=== PATIENT | female | born 1995 ===

== ENCOUNTER 2016-09-14 19:43 | Emergency (ER) | payer SELFPAY ==
[2016-09-14] MEDS ORDERED: PREDNISONE 20 MG TABLET ONE (20:32)
[2016-09-14] MEDS ORDERED: DOXYCYCLINE HYCLATE 100 MG TABLET ONE (20:32)
--- NOTE | 2016-09-14 20:38 | RAD ---
Name: CONNIE GARCIA Exam: Two-view chest Comparison: None Clinical history: Cough and fever Findings: 2 views of the chest are submitted. The heart mediastinum and hilar structures are within normal limits. There is no failure, infiltrate, pleural effusion or pneumothorax. Hyperinflation is present. Regional skeleton is within normal limits. Impression: No acute cardiopulmonary process
== END 2016-09-14 21:06 | disposition home or self-care (01) ==
LOC: ED 19:43
DX: B34.9 Viral infection, unspecified (principal); R50.9 Fever, unspecified; F17.210 Nicotine dependence, cigarettes, uncomplicated
CPT/HCPCS: 71020; 87804; 99283 ×2; J7512; A9270